=== PATIENT | male | born 1990 | race Two or more races ===

== ENCOUNTER 2016-12-09 07:57 | Emergency (ER) | payer MEDICAID, OTHER ==
[~2016-12-09] VITALS: Ht 185.4 cm; Wt 100.0 kg
[2016-12-09 08:00] VITALS: Ht 185.4 cm; Wt 100.0 kg
[2016-12-09] MEDS ORDERED: AMO500 PO (08:15)
--- NOTE | 2016-12-09 08:20 | ERD ---
ER Documentation Chief Complaint Date/Time DATE: 12/09/16 TIME: 08:18 Chief Complaint right era pain HPI 26-year-old male presents to the emergency department with right ear pain which started yesterday morning. Symptoms are constant but mild. The patient also reports tactile fevers. Last Advil was approximately 7 hours ago. The patient denies nausea, vomiting, diarrhea, cough, sore throat, or other symptoms. ROS All systems reviewed and are negative except as per history of present illness. Medications Home Meds Active Scripts Amoxicillin* (Amoxicillin*) 500 Mg Cap, 500 MG PO TID for 7 Days, #21 CAP Prov:CECIL WASHBURN PA-C 12/09/16 Allergies Allergies: Coded Allergies: No Known Allergy (Unverified , 04/10/14) PMhx/Soc Medical and Surgical Hx: pt denies Medical Hx, pt denies Surgical Hx Hx Alcohol Use: No Hx Substance Use: No Hx Tobacco Use: No FmHx Noncontributory for chief complaint Physical Exam Vitals Vital Signs Date Time Temp Pulse Resp B/P Pulse Ox O2 Delivery O2 Flow Rate FiO2 12/09/16 08:00 98.1 69 18 137/69 99 Physical Exam Const: Nontoxic, well-appearing male resting in no acute distress. Head: Atraumatic Eyes: Normal Conjunctiva ENT: Normal External Ears, Nose and Mouth. The right external auditory canal is edematous with some moisture present. The left external auditory canal is normal in appearance. Right and left tympanic membranes are normal in appearance. Neck: Full range of motion..~ No meningismus. Resp: Clear to auscultation bilaterally Cardio: Regular rate and rhythm, no murmurs Abd: Soft, non tender, non distended. Normal bowel sounds Skin: No petechiae or rashes Back: No midline or flank tenderness Ext: No cyanosis, or edema Neur: Awake and alert Psych: Normal Mood and Affect Procedures/MDM 26-year-old male presents for right ear pain which started yesterday. On exam The right external auditory canal is edematous with some moisture present, concerning for otitis externa. I have low suspicion for tympanic membrane rupture, mastoiditis, septicemia, or other emergent conditions. The patient is stable for outpatient management with a prescription for amoxicillin and he agrees with the discharge plan and diagnosis. Close follow-up with primary care physician recommended. The patient may return to the emergency department immediately for any new or worsening symptoms. Departure Diagnosis: Primary Impression: Otitis externa Otitis externa type: unspecified type Laterality: right Chronicity: acute Qualified Code: H60.501 - Acute otitis externa of right ear, unspecified type Additional Impression: Right ear pain Condition: Fair Patient Instructions: External Ear Infection (Adult) Referrals: [facility] YOU HAVE RECEIVED A MEDICAL SCREENING EXAM AND THE RESULTS INDICATE THAT YOU DO NOT HAVE A CONDITION THAT REQUIRES URGENT TREATMENT IN THE EMERGENCY DEPARTMENT. FURTHER EVALUATION AND TREATMENT OF YOUR CONDITION CAN WAIT UNTIL YOU ARE SEEN IN YOUR DOCTORS OFFICE WITHIN THE NEXT 1-2 DAYS. IT IS YOUR RESPONSIBILITY TO MAKE AN APPOINTMENT FOR [facility]- CARE. IF YOU HAVE A PRIMARY DOCTOR --you should call your primary doctor and schedule an appointment IF YOU DO NOT HAVE A PRIMARY DOCTOR YOU CAN CALL OUR PHYSICIAN REFERRAL HOTLINE AT IF YOU CAN NOT AFFORD TO SEE A PHYSICIAN YOU CAN CHOSE FROM THE FOLLOWING [facility], [facility] [address] [facility] [address] [facility] [address] [facility] [address] [facility] [address] [facility]. [address] Additional Instructions: Follow up with your PCP within the next 1-3 days for a repeat evaluation and a possible referral to a specialist, if required. Return the the emergency department immediately if symptoms worsen or change. If you have any questions regarding medications, ask your pharmacist or us before you leave. If any adverse reactions, occur while taking your medications, discontinue the treatment and return to the emergency department immediately. If any new or worsening symptoms, uncontrolled fevers, or other unexplained symptoms occur, return to the emergency department immediately. Take your medications as directed, and complete the entire course of treatment. CECIL WASHBURN PA-C Dec 09, 2016 08:20
== END 2016-12-09 08:39 | disposition home or self-care (01) ==
LOC: FTE 07:57
DX: H60.501 Unspecified acute noninfective otitis externa, right ear (principal)
CPT/HCPCS: 99283

== ENCOUNTER 2017-12-12 15:43 | Emergency (ER) | END 2017-12-12 20:00 | disposition home or self-care (01) ==